=== PATIENT | female | born 1965 | race Caucasian/White ===

== ENCOUNTER 2020-03-26 05:44 | Day surgery (SDC) | payer OTHER ==
[2020-03-24 11:52] VITALS: BMI 24.7
[2020-03-26] MEDS ORDERED: Fentanyl 100 MCG/2 ML VIAL ONE (06:14)
[2020-03-26] MEDS ORDERED: Midazolam HCl 2 mg/2 ml Vial ONE (06:14)
[2020-03-26] MEDS ORDERED: Bupivacaine PF 0.5% 30 ML VIAL ONE (06:40)
[2020-03-26] MEDS ORDERED: Bacitracin Zinc Ointment 30 gm TUBE ONE (06:40)
[2020-03-26] MEDS ORDERED: Sodium Chloride 0.9% 10 ML ONE (06:40)
[2020-03-26] MEDS ORDERED: Scopolamine 1.5 mg/72 hour Patch ONE (07:15)
--- NOTE | 2020-03-26 09:41 | RAD ---
EXAM: Left hand: 4 fluoroscopic images presented from 04 INDICATIONS: Intraoperative imaging during left thumb arthroplasty COMPARISON: None. FINDINGS: Films demonstrate pins overlying trapezium and proximal first metacarpal. Final image shows evidence of trapezium resection. IMPRESSION: Intraoperative imaging
[2020-03-26] MEDS ORDERED: Ketorolac Tromethamine 30 MG/ML VIAL ONE (10:30)
--- NOTE | 2020-03-28 17:25 | OP ---
DATE OF PROCEDURE: 03/26/2020 PREOPERATIVE DIAGNOSIS: Left thumb severe osteoarthritis, carpometacarpal joint. POSTOPERATIVE DIAGNOSIS: Left thumb severe osteoarthritis, carpometacarpal joint. PROCEDURE PERFORMED: 1. C-arm supervision. 2. CMC left thumb arthroplasty. 3. Complete trapeziectomy. 4. Ligament replacement tendon interposition with tendon transfer flexor tendon (flexor carpi radialis) to the digit. FINDINGS: Over 85% erosion in both sides of the joint down to bone on bone, inebriated bone and large osteophytes. Also found 0 degrees MP joint hyperextension. SPECIMENS SENT: Complete trapezium, osteophytes because there were so significant Rice bodies. TOURNIQUET TIME: 108 minutes. ESTIMATED BLOOD LOSS: 20 mL. DESCRIPTION OF PROCEDURE: After successful general endotracheal anesthesia, the limb was prepped and draped. The patient then had the left thumb undergo appropriate time-out and we identified the site, side, and the procedure based on the chart, markings, and consent. The patient then had the C-arm brought to the field, demonstrated the marked amount of lateralization and the large osteophytes. We then made a curvilinear J-shaped incision beginning senior care between the CMC joint and the MP joint and carried all way curvilinear parallel to the volar wrist flexion crease to the level of the radial side of the FCR tendon. We carried this through skin and subcutaneous tissue and dissected bluntly the radial superficial nerve branches and allowed them to go dorsally and then identified the median nerve cutaneous branches and allowed it to go palmarly. We then released the fascia of the thenar muscles along the line that comprise the junction of the dorsal and palmar skin, the abducted from the extensor pollicis and entered the joint. We sharply with scissors dissected all the joint capsule off the radial side of the trapezium and we had large osteophytes including one that was approximately the size of 2/3 of half of a peanut. We then were able to identify and spare the radial artery branches and we identified the flexor carpi radialis tendon and spared it and removed all soft tissue out of the trapezium. We placed a cord screw from [employer] in the trapezium, identified on C-arm, elevated these and removed it. Because there were so large osteophytes, we sent them to the lab. Trapezium was removed and we saw 80% enumerated bone. Removed all the osteophytes around the base of the thumb metacarpal. We then placed a 3-0 Prolene deep and near the FCR insertion for later anchovy portion of the ligament replacement tendon interposition procedure. We then identified the lateral wall of the proximal thumb metacarpal, at a point 15 mm from the proximal end of the metacarpal and obliquely it would enter the webspace portion of the metacarpal base at the junction of the metaphysis and the chondral bone, a guidewire was placed. It was checked for appropriate position and then we drilled a 2.7 cannulated drill over this. We then made it wide by drilling a 3.5 cannulated drill bit over it. We expanded this hole with the use of curettes as gouges until we knew we could get the patient's female tendon through this area. We now harvested the FCR tendon using 2 separate incisions, brought it the back into the wound, and wet the area and passed it with the tendon and then passed it through the drill hole. The drill hole had been drilled with the thumbnail in a plane parallel to the palm. Once this was done, we passed the tendon under the abductor pollicis longus just proximal to its insertion and then with appropriate tension and reduction, we pinned x2 with 0.045 K-wire at the first metacarpal to the second. The patient then had the radiographs confirm excellent position of the K-wire as well as the base of the thumb in frontal and sagittal views. We then brought the wires out, partially cut through the skin 3 to 4 mm from the incision. At this time, we cut and bent them. Now, we provided appropriate tension to the tendon and allowed it to pull parallel to the CMC joint. We placed 4-0 Prolene stitches of which 2 within the abductor tendon and on the ulnar side of the adductor tendon we placed 2 at the base of the bone. We then took 2 Mathew needles and threaded them on a 3-0 Prolene in the deep capsule, saw the flexor carpi radialis on excellent tension and in its tunnels, and then used the Mathew needles with a 3-0 Prolene to weave the interpositional portion of the graft and placed it deep in the defect created by the thumb, trapezium not being present. The patient then had the tourniquet deflated. Hemostasis was obtained. We had already tied the anchovy deep in the joint with a heavy Prolene. We then used a 2-0 Vicryl to repair the joint capsule in interrupted [id number] pattern. We placed the fascia of the thenar muscles back to the lateral sidewall. We also were able to perform easy closure of all the remaining wounds with interrupted dermal suture using Monocryl 3-0 and the skin reapproximated with 3-0 nylon at the forearm and 4-0 nylon at the CMC approach. Bulky dressing was applied with a sugar-tong splint. The patient left the operating room without evidence of anesthetic or operative complication. Job ID: [id number]
== END 2020-03-26 11:43 | disposition home or self-care (01) ==
LOC: SDC 05:44
PROVIDERS: ATTEND Orthopaedic Surgery Hand Surgery
PROC: 0RQT0ZZ Repair Left Carpometacarpal Joint, Open Approach (ICD-10-PCS; principal; 2020-03-26)
PROC: 0LX60ZZ Transfer Left Lower Arm and Wrist Tendon, Open Approach (ICD-10-PCS; principal; 2020-03-26)
DX: M18.12 Unilateral primary osteoarthritis of first carpometacarpal joint, left hand (principal); M81.0 Age-related osteoporosis without current pathological fracture; Z79.899 Other long term (current) drug therapy; Z88.0 Allergy status to penicillin
CPT/HCPCS: 76000; 88305; 88311; C1713; J1885; J2250; J3010; J3490; S0020